=== PATIENT | female | born 1945 | race Caucasian/White ===

== ENCOUNTER → 2020-02-04 | Outpatient (CLI) | payer OTHER | LOC: SJCVC 10:21 → SJCVCIMAG 10:21 | PROVIDERS: ATTEND Internal Medicine Cardiovascular Disease | DX: I08.1 Rheumatic disorders of both mitral and tricuspid valves (principal); R94.31 Abnormal electrocardiogram [ECG] [EKG]; I25.10 Atherosclerotic heart disease of native coronary artery without angina pectoris; E78.00 Pure hypercholesterolemia, unspecified; I73.00 Raynaud's syndrome without gangrene; J45.909 Unspecified asthma, uncomplicated; I10 Essential (primary) hypertension; E78.5 Hyperlipidemia, unspecified; M85.80 Other specified disorders of bone density and structure, unspecified site; Z79.82 Long term (current) use of aspirin; Z79.899 Other long term (current) drug therapy; Z87.891 Personal history of nicotine dependence ==

== ENCOUNTER → 2021-02-03 | Outpatient (CLI) | payer OTHER | LOC: SJCVC 09:41 → SJCVCIMAG 09:41 | PROVIDERS: ATTEND Internal Medicine Cardiovascular Disease | DX: R94.31 Abnormal electrocardiogram [ECG] [EKG] (principal); I44.4 Left anterior fascicular block; I25.10 Atherosclerotic heart disease of native coronary artery without angina pectoris; I10 Essential (primary) hypertension; E78.00 Pure hypercholesterolemia, unspecified; I95.1 Orthostatic hypotension; I73.9 Peripheral vascular disease, unspecified; K21.9 Gastro-esophageal reflux disease without esophagitis; J45.909 Unspecified asthma, uncomplicated; Z79.899 Other long term (current) drug therapy; Z87.891 Personal history of nicotine dependence; Z72.89 Other problems related to lifestyle ==

== ENCOUNTER → 2021-12-07 | Outpatient (CLI) | payer OTHER | LOC: SJCVC 09:46 | PROVIDERS: ATTEND Internal Medicine Cardiovascular Disease | DX: I25.10 Atherosclerotic heart disease of native coronary artery without angina pectoris (principal); I10 Essential (primary) hypertension; E78.00 Pure hypercholesterolemia, unspecified; I34.0 Nonrheumatic mitral (valve) insufficiency; I07.1 Rheumatic tricuspid insufficiency; R07.89 Other chest pain; E78.5 Hyperlipidemia, unspecified; F17.210 Nicotine dependence, cigarettes, uncomplicated; Z82.49 Family history of ischemic heart disease and other diseases of the circulatory system; Z72.89 Other problems related to lifestyle; Z79.82 Long term (current) use of aspirin; Z79.899 Other long term (current) drug therapy ==